=== PATIENT | female | born 1960 | race Two or more races ===

== ENCOUNTER 2017-06-01 10:25 | Emergency (ER) | payer MEDICAID ==
[~2017-06-01] VITALS: Ht 162.6 cm; Wt 77.1 kg
[2017-06-01 10:44] VITALS: BP 143/88
[2017-06-01] MEDS ORDERED: cefTRIAXone SOD 1,000 MG VL IM ONE (11:45)
== END 2017-06-01 13:07 | disposition home or self-care (01) ==
LOC: ER 10:25
DX: L02.811 Cutaneous abscess of head [any part, except face] (principal); R51 Headache
CPT/HCPCS: 70450; 96372; 99284; J0696

== ENCOUNTER 2017-08-21 21:52 | Emergency (ER) | payer MEDICAID ==
[~2017-08-21] VITALS: Ht 162.6 cm; Wt 72.6 kg
[2017-08-21 22:41] VITALS: BP 127/65
== END 2017-08-22 01:43 | disposition left against medical advice (07) ==
LOC: ER 21:52
DX: T14.8XXA Other injury of unspecified body region, initial encounter (principal); W26.0XXA Contact with knife, initial encounter; Y93.89 Activity, other specified; Y92.89 Other specified places as the place of occurrence of the external cause; Y99.8 Other external cause status; Z53.21 Procedure and treatment not carried out due to patient leaving prior to being seen by health care provider